=== PATIENT | female | born 1945 | race Caucasian/White ===

== ENCOUNTER → 2017-01-22 | Outpatient (CLI) | payer OTHER ==
[~2017-01-22] MED LIST: ALBUTEROL2.5 MG/3 M INH; COREG 12.5MG12.5 MG PO; HYDROCODON-ACE1 EAC6 PO; HYDROXYZINE HCL50 MG PO; LEVAQUIN500 MG PO; LEVOTHYROXINE125 MCG PO; LO-DOSE ASPIRIN81 MG PO; NORVASC 5 MG TAB5 MG PO; RANITIDINE HCL75 MG PO; TESSALON PERLE100 MG PO; TYLENOL 325MG325 MG PO; VITAMIN B-122500 MCG SL; ZOCOR40 MG PO
== END ==
LOC: KOH-I 09:56
DX: R19.7 Diarrhea, unspecified (principal); K22.8 Other specified diseases of esophagus
CPT/HCPCS: 74150

== ENCOUNTER 2020-12-15 18:15 | Emergency (ER) | payer OTHER ==
[2020-12-15 21:45] LABS: HEMOGLOBIN 13.6 gm/dl (12.3-15.3); RED BLOOD COUNT 4.49 M/UL (4.00-5.10); WHITE BLOOD COUNT 5.9 K/UL (4.5-11.0)
[2020-12-15 22:12] LABS: BUN/CREATININE RATIO 29 (0-10)
== END 2020-12-15 23:25 | disposition home or self-care (01) ==
LOC: ER1 18:15
PROVIDERS: Family Medicine
DX: R51.9 Headache, unspecified (principal); M54.2 Cervicalgia; E87.6 Hypokalemia; K59.00 Constipation, unspecified; I10 Essential (primary) hypertension; E78.5 Hyperlipidemia, unspecified; Z79.899 Other long term (current) drug therapy
CPT/HCPCS: 70450; 72125; 80053; 85025; 99284

== ENCOUNTER → 2021-07-13 | Outpatient (CLI) | payer OTHER | LOC: KOH-I 10:26 | DX: R07.89 Other chest pain (principal); M25.511 Pain in right shoulder; M19.011 Primary osteoarthritis, right shoulder | CPT/HCPCS: 71046; 73010 ==

== ENCOUNTER → 2022-02-05 | Outpatient (CLI) | payer OTHER | LOC: HEART 5 08:45 | DX: I20.9 Angina pectoris, unspecified (principal) | CPT/HCPCS: 78452; A9502; J2785 ==

== ENCOUNTER → 2022-02-21 | Outpatient (CLI) | payer OTHER | LOC: KOH-I 16:16 | DX: R06.2 Wheezing (principal) | CPT/HCPCS: 71046 ==

== ENCOUNTER 2022-03-01 09:05 | Emergency (ER) | payer OTHER ==
[2022-03-01 09:45] LABS: HEMOGLOBIN 14.1 gm/dl (12.3-15.3); RED BLOOD COUNT 4.73 M/UL (4.00-5.10); WHITE BLOOD COUNT 8.5 K/UL (4.5-11.0)
[2022-03-01 10:09] LABS: BUN/CREATININE RATIO 28 (0-10)
== END 2022-03-01 13:50 | disposition home or self-care (01) ==
LOC: ER1 09:05
PROVIDERS: Student in an Organized Health Care Education/Training Program
DX: R07.89 Other chest pain (principal); E78.5 Hyperlipidemia, unspecified; I10 Essential (primary) hypertension
CPT/HCPCS: 71045; 80053; 82550; 82553; 84484; 85025; 85379; 93005; 99285

== ENCOUNTER → 2022-04-05 | Outpatient (CLI) | payer OTHER | LOC: HEART 5 09:41 | DX: I20.9 Angina pectoris, unspecified (principal); I10 Essential (primary) hypertension; R06.00 Dyspnea, unspecified; I08.3 Combined rheumatic disorders of mitral, aortic and tricuspid valves | CPT/HCPCS: 93306 ==